=== PATIENT | male | born 1935 | race Caucasian/White ===

== ENCOUNTER 2021-02-06 16:11 | Emergency (ER) | payer MEDICARE, SELFPAY ==
[2021-02-06 16:12] VITALS: BP 125/70; PULSE 69; RESP 16; TEMP 35.9; O2SAT 94; BMI 28.3
[2021-02-06 16:16] VITALS: BP 125/70; PULSE 68; RESP 16; TEMP 35.9; O2SAT 95
--- NOTE | 2021-02-06 17:03 | EX.ED.DYSGE1 ---
HPI History of Present Illness Chief Complaint: Wound Check Narrative Narrative: 85-year-old male presents with concern for incision site infection. States that he has been on Keflex 4 days and then doxycycline since yesterday. 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 States that at that time he went to the emergency department in [place] where they placed him on Keflex and were able to treat him for some constipation he had been having. It did seem to improve but then began getting red again and was seen by his primary care physician yesterday at which point he was placed on doxycycline. States that it was improved this morning when he was seen by an in-home nurse. States that they took a drive to go for a walk here in [place] and she noticed that there was some drainage from the area. This nurse came to the park and examined it and felt that he needed to go to the emergency department. Patient admits to pain in the area which has been present throughout his entire recovery. He denies any fever, chills, trauma to the area. Surgery was done by Dr. Mcallister at [facility]. [facility] Medical History (Updated 02/06/21 @ 18:[address] Christopher Juares, ) Aortic aneurysm rupture Allergy/AdvReac Type Severity Reaction Status Date / Time No Known Allergies Allergy Verified 02/06/21 16:16 Social History Smoking Status: Never smoker [facility] ED Constitutional Constitutional ED: Denies chills, fever(s) or sweats Eyes Eyes: Denies blurry vision, change in vision or diplopia ENT ENT ED: Denies rhinorrhea or sore throat Cardiovascular Cardiovascular: Denies chest pain, orthopnea, palpitations or racing heartbeat Respiratory/Chest Respiratory/Chest: Denies cough, dyspnea, dyspnea on exertion, orthopnea or sputum Gastrointestinal Gastrointestinal: Denies abdominal pain, constipation, diarrhea, melena, nausea or vomiting Genitourinary Genitourinary ED: Denies dysuria, hematuria or urinary frequency Musculoskeletal Musculoskeletal: Denies arthralgias, myalgias or neck pain Integumentary Reports other Details: Erythema and drainage Neurologic Neurologic: Denies headache(s), paresthesias or weakness Psychiatric Psychiatric: Denies anxiety or depression Hematologic/Lymphatic Hematologic/Lymphatic: Denies easy bleeding or easy bruising Allergic/Immunologic Allergic/Immunologic ED: Denies mouth swelling or tongue swelling EXAM Physical Exam Const Vital Signs: 02/06/21 16:12 02/06/21 16:16 Temperature 96.7 F L 96.7 F L Temperature Source Temporal Temporal Pulse Rate 69 68 Respiratory Rate 16 16 Blood Pressure 125/70 H 125/70 H Blood Pressure Mean 88 88 Pulse Ox 94 95 Oxygen Delivery Method Room Air Room Air Positive well nourished and well developed General Appearance ED: well developed HEENT Reports TM's clear and moist mucous membranes normocephalic and atraumatic Tympanic Membrane ED: Yes TM's clear Eyes PERRL and EOMs intact bilaterally Neck no lymphadenopathy, supple and no JVD Chest Wall inspection of chest normal Resp normal respiratory effort and clear to auscultation bilaterally Cardio regular rate, S1 normal heart sound, S2 normal heart sound and no murmurs Peripheral Pulses: pulses 2+ throughout GI soft to palpation, non-tender and non-distended Back/Spine no CVA tenderness and no thoracic nor lumbar tenderness Extremity normal to inspection General Extremety ED: Negative for edema or tenderness General Extremity: Negative for edema Neuro oriented x3, CN's II-XII intact bilaterally and no sensory deficits noted Sensorium / Orientation: alert Motor Exam: strength 5/5 throughout Psych mental status grossly normal Skin Skin Narrative: Patient has a large incision closed with rufus extending from his left abdomen towards his left axilla. There is an area of approximately 3 cm x 3 cm that is reddened. There is some purulent drainage from the incision site when expressed. MDM MDM MDM Narrative Medical decision making narrative: Patient appears well and nontoxic. Vital signs within normal limits. No leukocytosis. Afebrile. Patient's pain treated with morphine. Spoke with the patient's surgeon at the [facility] who is agreeable with continue doxycycline and following up as scheduled. Patient and family also agreeable with this plan he was discharged home in stable condition. Lab Data Attestation: I reviewed the patient's lab results. Labs: Laboratory Results - last 24 hr 02/06/21 02/06/21 17:25 17:25 WBC 6.6 RBC 3.43 L Hgb 9.9 L Hct 32.5 L MCV 94.8 H MCH 28.9 MCHC 30.5 L RDW Std Deviation 56.5 H RDW Coeff of Jayla 16.4 H Plt Count 329 MPV 10.1 Immature Gran % (Auto) 3.100 H Neut % (Auto) 59.8 Lymph % (Auto) 17.4 L [place] % (Auto) 14.4 H Eos % (Auto) 4.7 Baso % (Auto) 0.6 Absolute Neuts (auto) 3.9 Absolute Lymphs (auto) 1.14 Nucleated RBC % 0 Sodium 138 Potassium 4.3 Chloride 102 Carbon Dioxide 33.0 H Anion Gap 3 L BUN 18 Creatinine 1.02 Estim Creat Clear Calc 56.66 Est GFR (MDRD) Af Amer 90 Est GFR (MDRD) Non-Af 74 BUN/Creatinine Ratio 17.6 Glucose 108 H Calcium 8.6 Discharge Plan Triage Chief Complaint: Wound Check ED Provider: Christopher Juares Dx/Rx/DC Orders Clinical Impression: Cellulitis Instructions: ED Cellulitis Primary Care Provider: Ladi Ledezma Referrals: Ladi Ledezma MD [Primary Care Provider] - 2 Days Disposition Disposition: Home, Self Care
[2021-02-06] MEDS: Ondansetron 4 MG/2 ML Vial IV (17:25)
[2021-02-06] MEDS: Morphine 4 MG/ML Syringe IV (17:26)
[2021-02-06 17:55] LABS: Absolute Lymphocyte Count 1.14 X10^3/uL (0.83-4.51); Absolute Neutrophil Count 3.9 X10^3/uL (2.0-7.7); Basophil# 0.04 X10^3/uL; Basophil% 0.6 % (0-1); Eosinophil# 0.31 X10^3/uL; Eosinophils% 4.7 % (0-5); Hematocrit 32.5 % (40-54); Hemoglobin 9.9 g/dL (13.0-16.5); Lymphocyte # 1.14 X10^3/ul (0.83-4.51); Lymphocyte % 17.4 % (19-41); Mean Corp Hgb Conc 30.5 g/dL (32-36); Mean Corpuscular Hgb 28.9 pg (27.0-32.0); Mean Corpuscular Volume 94.8 fL (80-94); Mean Platelet Vol. 10.1 fl (6.2-12.0); Monocyte# 0.94 X10^3/uL; Monocyte% 14.4 % (0-10); NRBC Flagged by Analyzer 0 % (0-5); Neutrophil # 3.92 X10^3/uL (2.7-7.7); Neutrophil % 59.8 % (47-70); Platelet Count 329 K/mm3 (150-450); RBC Distribution Width CV 16.4 % (11.6-14.6); RBC Distribution Width SD 56.5 fl (35.1-43.9); Red Blood Count 3.43 M/mm3 (4.6-6.2); White Blood Count 6.6 K/mm3 (4.4-11.0)
[2021-02-06 18:03] LABS: Anion Gap 3 (5-15); BUN 18 mg/dL (7-18); BUN/Creat Ratio 17.6 RATIO (10-20); Calcium,Total 8.6 mg/dL (8.5-10.1); Chloride 102 mmol/L (98-107); Creatinine, Serum 1.02 mg/dL (0.70-1.30); EST Glomerular Filtration Rate 74 mL/min (>60); Est Glom Filt Rate - Afr Amer 90 mL/min (>60); Estimated Creatinine Clearance 56.66 ml/min; Glucose 108 mg/dL (74-106); Potassium 4.3 mmol/L (3.5-5.1); Sodium Level 138 mmol/L (136-145)
--- NOTE | 2021-02-06 18:08 | NURSING ---
DR ROZINA VIVAR PAGED THROUGH [facility] [phone]
[2021-02-06 18:46] VITALS: BP 129/80; PULSE 100; RESP 16; O2SAT 99
== END 2021-02-06 19:31 | disposition home or self-care (01) ==
PROVIDERS: Emergency Provider Emergency Medicine; PCP Family Medicine
DX: L03.311 Cellulitis of abdominal wall (principal)
CPT/HCPCS: 80048; 85025; 96374; 96375; 99283; A4216; J2405